=== PATIENT | female | born 1975 | race Caucasian/White ===

== ENCOUNTER 2018-02-20 22:07 | Inpatient (IN) | payer OTHER ==
[2018-02-20] MEDS ORDERED: CARBOPROST 250 MCG INJ IM (23:00)
[2018-02-20] MEDS ORDERED: METHYLERGONOVINE 0.2 MG INJ IM (23:00)
[2018-02-20] MEDS ORDERED: CLINDAMYCIN 900 MG/D5W (PMX) 50 ML IVPB (23:00)
[2018-02-20] MEDS ORDERED: MISOPROSTOL 200 MCG TAB PR (23:00)
[2018-02-20] MEDS ORDERED: OXYTOCIN 30 UNITS/LR 500 ML IV ×2 (23:00)
[2018-02-20] MEDS: LACTATED RINGER'S 1,000 ML IV ×2 (23:21→23:58)
[2018-02-20 23:30] LABS: ADD MAN DIFF? NO
[2018-02-20 23:33] LABS: WHITE BLOOD COUNT 7.7 10^3/ul (4.8-10.8)
[2018-02-20 23:33] LABS: BASOPHILS % 0.3 % (0.0-2.0); EOSINOPHILS # 0.1 10^3/ul (0.0-0.5); EOSINOPHILS % 0.9 % (0.0-7.0); HEMATOCRIT 35.3 % (37.0-47.0); HEMOGLOBIN 11.6 g/dl (12.0-16.0); LYMPHOCYTES # 1.9 10^3/ul (0.8-2.9); LYMPHOCYTES % 23.9 % (15.0-51.0); MEAN CORPUSCULAR HEMOGLOBIN 26.4 pg (29.0-33.0); MEAN CORPUSCULAR HGB CONC 32.9 g/dl (32.0-37.0); MEAN CORPUSCULAR VOLUME 80.4 fl (82.0-101.0); MEAN PLATELET VOLUME 11.9 fl (7.4-10.4); MONOCYTE # 0.5 10^3/ul (0.3-0.9); NEUTROPHIL # 5.2 10^3/ul (1.6-7.5); NEUTROPHILS % 67.8 % (39.0-77.0); PLATELET COUNT 241 10^3/UL (140-415); RED BLOOD COUNT 4.39 10^6/ul (4.20-5.40); RED CELL DISTRIBUTION WIDTH 18.2 % (11.5-14.5)
[2018-02-20 23:53] LABS: INR 0.89; PARTIAL THROMBOPLASTIN TIME 26.6 Sec (25.0-35.0); PROTIME 12.1 Sec (11.9-14.9); PT RATIO 0.9
[2018-02-21] MEDS: CITRIC ACID/SODIUM CITRATE 15 ML CUP PO (00:16)
[2018-02-21 00:26] LABS: HEPATITIS B SURFACE ANTIGEN NEGATIVE (NEGATIVE)
[2018-02-21] MEDS ORDERED: DEXAMETHASONE 4 MG/ML 1 ML INJ (00:38)
[2018-02-21] MEDS ORDERED: ONDANSETRON 4 MG INJ (00:38)
[2018-02-21] MEDS ORDERED: morphine SULFATE/PF (10 MG/10 ML) INJ (00:45)
[2018-02-21] MEDS ORDERED: FENTAnyl 50 MCG/ML VIAL (00:45)
[2018-02-21] MEDS ORDERED: OXYTOCIN 30 UNITS/LR 500 ML IV ×2 (00:45→03:00)
[2018-02-21] MEDS ORDERED: BUPIVACAINE 0.75%/DEXT (SPINAL) 2 ML INJ (00:48)
[2018-02-21] MEDS ORDERED: PHENYLephrine (100 MCG/ML) 10ML SYG (00:52)
[2018-02-21] MEDS ORDERED: HYDROmorphONE 0.5 MG/0.5 ML SYG IV ×2 (02:30)
[2018-02-21] MEDS ORDERED: ZOLPIDEM 5 MG TAB PO (02:30)
[2018-02-21] MEDS ORDERED: NALOXONE (0.4 MG/ML) INJ IV (02:30)
[2018-02-21] MEDS ORDERED: DIPHENHYDRAMINE 50 MG INJ IV (02:30)
[2018-02-21] MEDS ORDERED: CARBOPROST 250 MCG INJ IM (03:00)
[2018-02-21] MEDS ORDERED: MISOPROSTOL 200 MCG TAB PR (03:00)
[2018-02-21] MEDS ORDERED: LANOLIN 7 GM TUBE TOP (03:00)
[2018-02-21] MEDS ORDERED: METHYLERGONOVINE 0.2 MG INJ IM (03:00)
[2018-02-21] MEDS: KETOROLAC 30 MG INJ IV ×2 (03:34→14:28)
[2018-02-21] MEDS: OXYTOCIN 30 UNITS/LR 500 ML IV (06:23)
[2018-02-21] MEDS: ONDANSETRON 4 MG INJ IV (06:24)
[2018-02-21] MEDS: LACTATED RINGER'S 1,000 ML IV ×3 (14:30→22:34)
[2018-02-21 21:33] LABS: RAPID PLASMA REAGIN NONREACTIVE (NR)
[2018-02-22] MEDS: KETOROLAC 30 MG INJ IV (00:15)
[2018-02-22] MEDS ORDERED: OXYCODONE/ACETAMINOPHEN (5/325) TAB PO (00:50)
[2018-02-22] MEDS: LACTATED RINGER'S 1,000 ML IV (02:42)
[2018-02-22] MEDS: OXYCODONE/ACETAMINOPHEN (5/325) TAB PO ×3 (05:17→17:58)
[2018-02-22] MEDS: IBUPROFEN 800 MG TAB PO ×3 (06:15→21:23)
[2018-02-22 08:27] LABS: ADD MAN DIFF? NO
[2018-02-22 08:35] LABS: WHITE BLOOD COUNT 11.8 10^3/ul (4.8-10.8)
[2018-02-22 08:35] LABS: BASOPHILS % 0.2 % (0.0-2.0); EOSINOPHILS % 0.2 % (0.0-7.0); HEMATOCRIT 28.6 % (37.0-47.0); HEMOGLOBIN 9.4 g/dl (12.0-16.0); LYMPHOCYTES # 0.8 10^3/ul (0.8-2.9); LYMPHOCYTES % 6.7 % (15.0-51.0); MEAN CORPUSCULAR HEMOGLOBIN 26.7 pg (29.0-33.0); MEAN CORPUSCULAR HGB CONC 32.9 g/dl (32.0-37.0); MEAN CORPUSCULAR VOLUME 81.3 fl (82.0-101.0); MEAN PLATELET VOLUME 11.8 fl (7.4-10.4); MONOCYTE # 0.5 10^3/ul (0.3-0.9); MONOCYTES % 4.4 % (0.0-11.0); NEUTROPHIL # 10.4 10^3/ul (1.6-7.5); NEUTROPHILS % 88.1 % (39.0-77.0); PLATELET COUNT 199 10^3/UL (140-415); RED BLOOD COUNT 3.52 10^6/ul (4.20-5.40); RED CELL DISTRIBUTION WIDTH 18.6 % (11.5-14.5)
[2018-02-23 00:57] LABS: ADD UMIC YES; UR ASCORBIC ACID NEGATIVE (NEGATIVE); UR BILIRUBIN (Dip) NEGATIVE (NEGATIVE); UR BLOOD (Dip) 3+ mg/dL (NEGATIVE); UR CLARITY CLEAR (CLEAR); UR COLOR YELLOW (YELLOW); UR GLUCOSE (Dip) NEGATIVE (NEGATIVE); UR KETONES (Dip) NEGATIVE (NEGATIVE); UR LEUKOCYTE ESTERASE (Dip) 2+ Leu/ul (NEGATIVE); UR NITRITE (Dip) NEGATIVE (NEGATIVE); UR RBC 5 /HPF (0-5); UR SPECIFIC GRAVITY (Dip) 1.005 (1.003-1.030); UR TOTAL PROTEIN (Dip) NEGATIVE (NEGATIVE); UR UROBILINOGEN (Dip) NEGATIVE (NEGATIVE); UR WBC 1 /HPF (0-5)
[2018-02-23] MEDS: IBUPROFEN 800 MG TAB PO ×3 (05:59→22:14)
[2018-02-23] MEDS: BISACODYL 10 MG SUPP PR (05:59)
[2018-02-23 09:31] LABS: ADD MAN DIFF? NO
[2018-02-23 09:33] LABS: BASOPHILS % 0.2 % (0.0-2.0); EOSINOPHILS # 0.1 10^3/ul (0.0-0.5); EOSINOPHILS % 1.1 % (0.0-7.0); HEMATOCRIT 26.6 % (37.0-47.0); HEMOGLOBIN 8.8 g/dl (12.0-16.0); LYMPHOCYTES % 8.1 % (15.0-51.0); MEAN CORPUSCULAR HEMOGLOBIN 26.8 pg (29.0-33.0); MEAN CORPUSCULAR HGB CONC 33.1 g/dl (32.0-37.0); MEAN CORPUSCULAR VOLUME 81.1 fl (82.0-101.0); MEAN PLATELET VOLUME 11.5 fl (7.4-10.4); MONOCYTE # 0.5 10^3/ul (0.3-0.9); MONOCYTES % 4.4 % (0.0-11.0); NEUTROPHIL # 10.3 10^3/ul (1.6-7.5); NEUTROPHILS % 85.8 % (39.0-77.0); PLATELET COUNT 224 10^3/UL (140-415); RED BLOOD COUNT 3.28 10^6/ul (4.20-5.40); RED CELL DISTRIBUTION WIDTH 18.7 % (11.5-14.5)
[2018-02-23] MEDS: OXYCODONE/ACETAMINOPHEN (5/325) TAB PO ×3 (11:05→20:24)
[2018-02-24] MEDS: OXYCODONE/ACETAMINOPHEN (5/325) TAB PO ×3 (00:21→12:02)
[2018-02-24] MEDS: IBUPROFEN 800 MG TAB PO ×2 (05:48→14:51)
[2018-02-24] MEDS: DIPHTH/TET/ACEL PERTUSS (ADULT) 0.5 ML VIAL IM* (09:00)
== END 2018-02-24 17:20 | disposition home or self-care (01) | DRG 766 ==
LOC: OBT 22:07 → L-D 02-21 00:19 → PP1 02-21 05:25 → OBT 22:30 → L-D 22:30
PROVIDERS: Obstetrics & Gynecology
PROC: 10D00Z1 Extraction of Products of Conception, Low, Open Approach (ICD-10-PCS; principal; 2018-02-21)
PROC: 0UN90ZZ Release Uterus, Open Approach (ICD-10-PCS; 2018-02-21)
DX: O34.211 Maternal care for low transverse scar from previous cesarean delivery (principal); O99.89 Other specified diseases and conditions complicating pregnancy, childbirth and the puerperium; N73.6 Female pelvic peritoneal adhesions (postinfective); O24.429 Gestational diabetes mellitus in childbirth, unspecified control; R33.9 Retention of urine, unspecified; Z3A.38 38 weeks gestation of pregnancy; Z37.0 Single live birth
CPT/HCPCS: 81001; 82962; 85025; 85610; 85730; 86592; 86850; 86900; 86901; 87086; 87340; 99464

== ENCOUNTER 2018-02-27 13:22 | Inpatient (IN) | payer OTHER ==
[2018-02-27 13:58] LABS: ADD MAN DIFF? NO
[2018-02-27 14:05] LABS: WHITE BLOOD COUNT 12.9 10^3/ul (4.8-10.8)
[2018-02-27 14:05] LABS: BASOPHILS % 0.2 % (0.0-2.0); EOSINOPHILS # 0.2 10^3/ul (0.0-0.5); EOSINOPHILS % 1.6 % (0.0-7.0); HEMATOCRIT 40.2 % (37.0-47.0); HEMOGLOBIN 13.1 g/dl (12.0-16.0); LYMPHOCYTES % 7.8 % (15.0-51.0); MEAN CORPUSCULAR HEMOGLOBIN 26.2 pg (29.0-33.0); MEAN CORPUSCULAR HGB CONC 32.6 g/dl (32.0-37.0); MEAN CORPUSCULAR VOLUME 80.4 fl (82.0-101.0); MEAN PLATELET VOLUME 9.9 fl (7.4-10.4); MONOCYTE # 0.3 10^3/ul (0.3-0.9); MONOCYTES % 2.6 % (0.0-11.0); NEUTROPHIL # 11.2 10^3/ul (1.6-7.5); NEUTROPHILS % 87.2 % (39.0-77.0); PLATELET COUNT 669 10^3/UL (140-415); RED CELL DISTRIBUTION WIDTH 18.5 % (11.5-14.5)
[2018-02-27] MEDS: ONDANSETRON 4 MG INJ IV ×2 (14:06→17:34)
[2018-02-27] MEDS: SOD CHLORIDE 0.9% 1,000 ML IV (14:06)
[2018-02-27] MEDS: morphine 4 MG/ML VIAL IV ×2 (14:06→17:33)
[2018-02-27 14:24] LABS: ALANINE AMINOTRANSFERASE 26 IU/L (13-69); ALBUMIN 3.7 g/dl (3.3-4.9); ALKALINE PHOSPHATASE 177 IU/L (42-121); ANION GAP 22 (8-16); ASPARTATE AMINO TRANSFERASE 14 IU/L (15-46); BLOOD UREA NITROGEN 50 mg/dl (7-20); CALCIUM 9.4 mg/dl (8.4-10.2); CARBON DIOXIDE 16 mmol/L (21-31); CHLORIDE 103 mmol/L (97-110); CREATININE 5.68 mg/dl (0.44-1.00); GLUCOSE 132 mg/dl (70-220); LIPASE 25 U/L (23-300); POTASSIUM 4.5 mmol/L (3.5-5.1); SODIUM 136 mmol/L (135-144); TOTAL PROTEIN 8.6 g/dl (6.1-8.1)
[2018-02-27 14:25] LABS: ALBUMIN/GLOBULIN RATIO 0.75; PROTIME 13.3 Sec (11.9-14.9)
[2018-02-27 14:26] LABS: PARTIAL THROMBOPLASTIN TIME 30.9 Sec (25.0-35.0)
[2018-02-27 14:36] LABS: TROPONIN-I < 0.010 ng/ml (0.000-0.120)
[2018-02-27 15:29] LABS: BILIRUBIN,INDIRECT 1.1 mg/dl (0-1.1); BILIRUBIN,TOTAL 1.1 mg/dl (0.2-1.3)
[2018-02-27] MEDS ORDERED: ACETAMINOPHEN 325 MG TAB PO ×2 (16:00→18:30)
[2018-02-27] MEDS ORDERED: ALBUTEROL/IPRATROPIUM (NEB) 3 ML AMP HHN (18:30)
[2018-02-27] MEDS ORDERED: NA PHOSPHATE/BIPHOS 133 ML ENEMA PR (18:30)
[2018-02-27] MEDS ORDERED: DOCUSATE SODIUM 100 MG CAP PO (18:30)
[2018-02-27] MEDS ORDERED: MAGNESIUM HYDROXIDE 30ML CUP PO (18:30)
[2018-02-27] MEDS ORDERED: NITROGLYCERIN (SL) 0.4 MG TAB SL (18:30)
[2018-02-27] MEDS ORDERED: NACL 0.9% 3 ML SYG IV (18:30)
[2018-02-27] MEDS ORDERED: LORAZEPAM 2 MG INJ IV (18:30)
[2018-02-27] MEDS ORDERED: hydrALAzine 20 MG INJ IV (18:30)
[2018-02-27] MEDS: SOD CHLORIDE 0.45% 1,000 ML IV ×2 (18:34→23:00)
[2018-02-27 19:04] LABS: INR 1.09; PROTIME 14.3 Sec (11.9-14.9); PT RATIO 1.1
[2018-02-27 19:05] LABS: PARTIAL THROMBOPLASTIN TIME 32.3 Sec (25.0-35.0)
[2018-02-27 19:17] LABS: FREE T4 (FREE THYROXINE) 1.48 ng/dl (0.64-1.79)
[2018-02-27] MEDS: LEVOFLOXACIN 750MG/D5W (PMX) 150 ML IVPB (19:47)
[2018-02-27] MEDS: morphine 2 MG INJ IV (19:48)
[2018-02-27] MEDS: HYDROCODONE/APAP (5/325) TAB PO (21:02)
[2018-02-27] MEDS: HEPARIN 5,000 UNIT/0.5 ML VIAL SC (21:09)
[2018-02-27 22:44] LABS: ANION GAP 18 (8-16); BLOOD UREA NITROGEN 48 mg/dl (7-20); CALCIUM 8.7 mg/dl (8.4-10.2); CARBON DIOXIDE 15 mmol/L (21-31); CHLORIDE 105 mmol/L (97-110); CREATININE 5.49 mg/dl (0.44-1.00); GLUCOSE 140 mg/dl (70-220); POTASSIUM 4.1 mmol/L (3.5-5.1); SODIUM 134 mmol/L (135-144)
[2018-02-28] MEDS: morphine 2 MG INJ IV ×2 (00:07→06:25)
[2018-02-28 01:05] LABS: LACTIC ACID 0.8 mmol/L (0.5-2.0)
[2018-02-28] MEDS: PANTOPRAZOLE (EC) 40 MG TAB PO (05:13)
[2018-02-28 06:12] LABS: ADD MAN DIFF? NO
[2018-02-28 06:28] LABS: LACTIC ACID 0.9 mmol/L (0.5-2.0)
[2018-02-28 06:30] LABS: WHITE BLOOD COUNT 11.9 10^3/ul (4.8-10.8)
[2018-02-28 06:30] LABS: BASOPHILS % 0.2 % (0.0-2.0); EOSINOPHILS # 0.4 10^3/ul (0.0-0.5); EOSINOPHILS % 3.4 % (0.0-7.0); HEMATOCRIT 37.8 % (37.0-47.0); HEMOGLOBIN 12.3 g/dl (12.0-16.0); LYMPHOCYTES # 0.9 10^3/ul (0.8-2.9); LYMPHOCYTES % 7.2 % (15.0-51.0); MEAN CORPUSCULAR HGB CONC 32.5 g/dl (32.0-37.0); MEAN CORPUSCULAR VOLUME 79.9 fl (82.0-101.0); MONOCYTE # 0.5 10^3/ul (0.3-0.9); MONOCYTES % 4.1 % (0.0-11.0); NEUTROPHILS % 84.3 % (39.0-77.0); RED BLOOD COUNT 4.73 10^6/ul (4.20-5.40); RED CELL DISTRIBUTION WIDTH 18.3 % (11.5-14.5)
[2018-02-28 06:53] LABS: HEMOGLOBIN A1C 5.4 % (0-5.9)
[2018-02-28 06:57] LABS: ANION GAP 22 (8-16); BLOOD UREA NITROGEN 52 mg/dl (7-20); CALCIUM 9.1 mg/dl (8.4-10.2); CARBON DIOXIDE 15 mmol/L (21-31); CHLORIDE 103 mmol/L (97-110); CHOL/HDL RATIO 6.5 RATIO; CHOLESTEROL 204 mg/dl (100-200); GLUCOSE 130 mg/dl (70-220); HDL CHOLESTEROL 31 mg/dl (34-88); LDL CHOLESTEROL,CALCULATED 119 mg/dl; MAGNESIUM 2.5 mg/dl (1.7-2.5); PHOSPHORUS 7.9 mg/dl (2.5-4.9); POTASSIUM 4.5 mmol/L (3.5-5.1); SODIUM 135 mmol/L (135-144); TRIGLYCERIDES 270 mg/dl (0-149)
[2018-02-28 07:03] LABS: PLATELET COUNT 690 10^3/UL (140-415)
[2018-02-28] MEDS: HEPARIN 5,000 UNIT/0.5 ML VIAL SC ×2 (09:00→20:25)
[2018-02-28] MEDS: ONDANSETRON 4 MG INJ IV ×2 (09:16→20:20)
[2018-02-28 10:43] LABS: ADD UMIC NO; UR ASCORBIC ACID NEGATIVE (NEGATIVE); UR BILIRUBIN (Dip) NEGATIVE (NEGATIVE); UR BLOOD (Dip) NEGATIVE (NEGATIVE); UR CLARITY CLEAR (CLEAR); UR COLOR YELLOW (YELLOW); UR GLUCOSE (Dip) NEGATIVE (NEGATIVE); UR KETONES (Dip) TRACE mg/dL (NEGATIVE); UR LEUKOCYTE ESTERASE (Dip) NEGATIVE Leu/ul (NEGATIVE); UR NITRITE (Dip) NEGATIVE (NEGATIVE); UR SPECIFIC GRAVITY (Dip) 1.019 (1.003-1.030); UR TOTAL PROTEIN (Dip) NEGATIVE (NEGATIVE); UR UROBILINOGEN (Dip) NEGATIVE (NEGATIVE)
[2018-02-28 10:48] LABS: SODIUM,URINE RANDOM 28 mmol/L (30-90)
[2018-02-28 10:48] LABS: CREATININE,URINE RANDOM 140.82 mg/dl (20-320)
[2018-02-28 13:20] LABS: SODIUM,URINE RANDOM 28 mmol/L (30-90)
[2018-02-28] MEDS ORDERED: DIATRIZOATE MEGLUMINE 300 ML BTL UR (14:10)
[2018-02-28] MEDS: LIDOCAINE 1% (MDV) 10 ML INJ (18:06)
[2018-02-28] MEDS: SOD CHLORIDE 0.45% 1,000 ML IV ×2 (18:44→20:45)
[2018-02-28 18:59] LABS: FLD PMN% 10.4 %; FLD RBC 3000 /uL; FLD WBC 911 /cmm
[2018-02-28 19:23] LABS: FLUID GLUCOSE 102 mg/dl
[2018-02-28 19:24] LABS: FLUID TOTAL PROTEIN < 2.0 g/dl; FLUID TYPE PARACENTESIS FLUID
[2018-02-28 19:31] LABS: FLUID AMYLASE 66 U/L; FLUID LD 571 U/L; FLUID TYPE PARACENTESIS FLUID
[2018-02-28 20:07] LABS: FLD CLARITY CLEAR
[2018-02-28 20:07] LABS: FLD TYPE PARACENTHESIS
[2018-02-28 20:08] LABS: FLD COLOR YELLOW
[2018-02-28 20:10] LABS: FLD MN% 89.6 %
[2018-02-28] MEDS: HYDROCODONE/APAP (5/325) TAB PO (20:21)
[2018-03-01 01:35] LABS: LACTIC ACID 0.9 mmol/L (0.5-2.0)
[2018-03-01] MEDS: HYDROCODONE/APAP (5/325) TAB PO ×3 (02:42→20:34)
[2018-03-01 06:10] LABS: ADD MAN DIFF? NO
[2018-03-01 06:19] LABS: BASOPHILS % 0.2 % (0.0-2.0); EOSINOPHILS # 0.4 10^3/ul (0.0-0.5); EOSINOPHILS % 3.5 % (0.0-7.0); HEMOGLOBIN 11.8 g/dl (12.0-16.0); LYMPHOCYTES # 1.1 10^3/ul (0.8-2.9); LYMPHOCYTES % 8.9 % (15.0-51.0); MEAN CORPUSCULAR HEMOGLOBIN 26.6 pg (29.0-33.0); MEAN CORPUSCULAR HGB CONC 33.7 g/dl (32.0-37.0); MEAN CORPUSCULAR VOLUME 78.8 fl (82.0-101.0); MEAN PLATELET VOLUME 9.8 fl (7.4-10.4); MONOCYTE # 0.6 10^3/ul (0.3-0.9); MONOCYTES % 5.1 % (0.0-11.0); NEUTROPHIL # 9.9 10^3/ul (1.6-7.5); NEUTROPHILS % 81.6 % (39.0-77.0); RED BLOOD COUNT 4.44 10^6/ul (4.20-5.40); RED CELL DISTRIBUTION WIDTH 17.7 % (11.5-14.5)
[2018-03-01 06:19] LABS: WHITE BLOOD COUNT 12.2 10^3/ul (4.8-10.8)
[2018-03-01] MEDS: PANTOPRAZOLE (EC) 40 MG TAB PO (06:20)
[2018-03-01 07:00] LABS: ANION GAP 12 (8-16); BLOOD UREA NITROGEN 28 mg/dl (7-20); CALCIUM 8.7 mg/dl (8.4-10.2); CARBON DIOXIDE 20 mmol/L (21-31); CHLORIDE 105 mmol/L (97-110); CREATININE 1.28 mg/dl (0.44-1.00); GLUCOSE 123 mg/dl (70-220); POTASSIUM 4.1 mmol/L (3.5-5.1); SODIUM 133 mmol/L (135-144)
[2018-03-01 07:40] LABS: PLATELET COUNT 698 10^3/UL (140-415)
[2018-03-01] MEDS: SOD CHLORIDE 0.45% 1,000 ML IV ×2 (10:05→23:25)
[2018-03-01] MEDS: HEPARIN 5,000 UNIT/0.5 ML VIAL SC (10:57)
[2018-03-01] MEDS: ONDANSETRON 4 MG INJ IV (11:55)
[2018-03-01] MEDS: LEVOFLOXACIN 500MG/D5W (PMX) 100 ML IVPB (20:39)
[2018-03-02] MEDS: SOD CHLORIDE 0.45% 1,000 ML IV (02:59)
[2018-03-02] MEDS: HYDROCODONE/APAP (5/325) TAB PO (03:03)
[2018-03-02] MEDS: PANTOPRAZOLE (EC) 40 MG TAB PO (05:43)
[2018-03-02 06:34] LABS: ADD MAN DIFF? NO
[2018-03-02 06:42] LABS: WHITE BLOOD COUNT 12.6 10^3/ul (4.8-10.8)
[2018-03-02 06:42] LABS: BASOPHILS % 0.2 % (0.0-2.0); EOSINOPHILS # 0.4 10^3/ul (0.0-0.5); EOSINOPHILS % 3.1 % (0.0-7.0); HEMATOCRIT 33.7 % (37.0-47.0); LYMPHOCYTES # 1.3 10^3/ul (0.8-2.9); LYMPHOCYTES % 10.6 % (15.0-51.0); MEAN CORPUSCULAR HEMOGLOBIN 26.1 pg (29.0-33.0); MEAN CORPUSCULAR HGB CONC 32.6 g/dl (32.0-37.0); MEAN PLATELET VOLUME 9.5 fl (7.4-10.4); MONOCYTE # 0.6 10^3/ul (0.3-0.9); MONOCYTES % 4.9 % (0.0-11.0); NEUTROPHIL # 10.1 10^3/ul (1.6-7.5); NEUTROPHILS % 80.2 % (39.0-77.0); PLATELET COUNT 588 10^3/UL (140-415); RED BLOOD COUNT 4.21 10^6/ul (4.20-5.40); RED CELL DISTRIBUTION WIDTH 17.8 % (11.5-14.5)
[2018-03-02 07:13] LABS: ANION GAP 10 (8-16); BLOOD UREA NITROGEN 13 mg/dl (7-20); CALCIUM 8.1 mg/dl (8.4-10.2); CARBON DIOXIDE 21 mmol/L (21-31); CHLORIDE 104 mmol/L (97-110); CREATININE 0.56 mg/dl (0.44-1.00); GLUCOSE 101 mg/dl (70-220); POTASSIUM 4.1 mmol/L (3.5-5.1); SODIUM 131 mmol/L (135-144)
[2018-03-02 16:32] LABS: CREATININE, RANDOM URINE 161 mg/dL (20-320); MICROALBUMIN 1.6 mg/dL; MICROALBUMIN/CREATININE RATIO 10 (<30)
== END 2018-03-02 15:45 | disposition home health service (06) | DRG 683 ==
LOC: E/R 13:22 → MS3 15:52 → PP2 21:58
PROC: 0W9G3ZZ Drainage of Peritoneal Cavity, Percutaneous Approach (ICD-10-PCS; principal; 2018-02-28)
DX: N17.9 Acute kidney failure, unspecified (principal); O71.5 Other obstetric injury to pelvic organs; R65.10 Systemic inflammatory response syndrome (SIRS) of non-infectious origin without acute organ dysfunction; R18.8 Other ascites; E87.1 Hypo-osmolality and hyponatremia; K76.0 Fatty (change of) liver, not elsewhere classified; Z88.0 Allergy status to penicillin
CPT/HCPCS: 36415; 71045; 72192; 74176; 76775; 80048; 80053; 80061; 81003; 82043; 82150; 82945; 83036; 83605; 83615; 83690; 83735; 83986; 84100; 84155; 84157; 84300; 84439; 84443; 84484; 84703; 85025; 85610; 85730; 86850; 86900; 86901; 87040; 87070; 87086; 87102; 87116; 88104; 88305; 89051; 89060; 93005; 96374; 96375; 99285-25